=== PATIENT | female | born 1960 | race Hispanic/Latino ===

== ENCOUNTER 2017-03-30 11:43 | Emergency (ER) | payer MEDICARE, MEDICAID ==
[2017-03-30 12:05] VITALS: BMI 35.0
[2017-03-30 12:08] VITALS: BP 132/79; PULSE 98; RESP 18; TEMP 98.2; O2SAT 96
[2017-03-30] MEDS ORDERED: DiphenhydrAMINE 50 mg/ml Inj IM STA (12:31)
--- NOTE | 2017-03-30 12:35 | ED PDOC ---
Arrival/HPI - General Chief Complaint: Abnormal Skin Integrity Time Seen by Provider: 03/30/17 12:30 Historian: Patient - History of Present Illness Narrative History of Present Illness (Text): 03/30/17 12:32 56 y/o female, pmh including hyperlipidemia, nkda, post menopaursal, c/o itching rash from the scalp to the upper body x 10 days. Pt. stated that she use new hair dye about 10 days ago, been having itching from the scalp to the upper body, no fever or chills, no headache or night sweat, no chest pain or shortness of breath, no palpitation, no other medical or psychological complaints. Past Medical History - Provider Review Nursing Documentation Reviewed: Yes - Infectious Disease Hx of Infectious Diseases: None - Cardiac Hx Atrial Fibrillation: Yes Hx Hypertension: Yes Hx Pacemaker: Yes (PPM with Difib.10/30/13) Hx Peripheral Edema: No Other/Comment: IHSS. 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 while We Talking) - Renal Hx Renal Disorder: No - Endocrine/Metabolic Hx Endocrine Disorders: No - Hematological/Oncological Hx Blood Disorders: Yes Hx Blood Transfusions: Yes Hx Blood Transfusion Reaction: No - Integumentary Hx Dermatological Disorder: Yes Hx Psoriasis: Yes (All Over The Body with Small Rash.Skin Intact) - Musculoskeletal/Rheumatological Hx Musculoskeletal Disorders: No Hx Falls: No - Gastrointestinal Hx Gastrointestinal Disorders: No - Genitourinary/Gynecological Hx Genitourinary Disorders: No - Psychiatric Hx Psychophysiologic Disorder: No Hx Substance Use: No - Surgical History Hx Coronary Artery Bypass Graft: Yes (Cabg 10/19/2005) Hx Tonsillectomy: Yes (28 Yrs Ago) - Anesthesia Hx Anesthesia: Yes Hx Anesthesia Reactions: No Hx Malignant Hyperthermia: No - Suicidal Assessment Feels Threatened In Home Enviroment: No Family/Social History - Physician Review Nursing Documentation Reviewed: Yes Family/Social History: Unknown Family HX Smoking Status: Current Some Days Smoker Hx Alcohol Use: No Hx Substance Use: No Allergies/Home Meds Allergies/Adverse Reactions: Allergies No Known Allergies Allergy (Verified 11/08/14 21:56) Home Medications: Home Meds Medication Instructions Recorded Confirmed Pradaxa 150 mg PO BID 11/14/13 03/30/17 Verapamil 240 mg PO DAILY 11/14/13 03/30/17 ALPRAZolam [Xanax] 1 mg PO BID PRN 07/14/16 03/30/17 Simvastatin [Simvastatin] 1 tab PO HS 03/30/17 03/30/17 Review of Systems - Review of Systems Constitutional: absent: Fatigue, Fevers Eyes: absent: Vision Changes Respiratory: absent: SOB, Cough Cardiovascular: absent: Chest Pain Gastrointestinal: absent: Abdominal Pain, Diarrhea, Nausea, Vomiting Skin: Rash, Pruritis. absent: Skin Lesions, Laceration, Abscess, Ulcer, Cellulitis Neurological: absent: Headache, Dizziness, Focal Weakness, Gait Changes Physical Exam Vital Signs Reviewed: Yes Vital Signs Temp Pulse Resp BP Pulse Ox 03/30/17 12:07 98.2 F 98 H 18 132/79 96 Temperature: Afebrile Blood Pressure: Normal Pulse: Regular Respiratory Rate: Normal Appearance: Positive for: Well-Appearing, Non-Toxic, Comfortable Pain Distress: None Mental Status: Positive for: Alert and Oriented X 3 - Systems Exam Head: Present: Atraumatic, Normocephalic Pupils: Present: PERRL Extroacular Muscles: Present: EOMI Conjunctiva: Present: Normal Mouth: Present: Moist Mucous Membranes Neck: Present: Normal Range of Motion Respiratory/Chest: Present: Clear to Auscultation, Good Air Exchange. No: Respiratory Distress, Accessory Muscle Use Cardiovascular: Present: Regular Rate and Rhythm, Normal S1, S2. No: Murmurs Abdomen: Present: Normal Bowel Sounds. No: Tenderness, Distention, Peritoneal Signs Back: Present: Normal Inspection Upper Extremity: Present: Normal Inspection. No: Cyanosis, Edema Lower Extremity: Present: Normal Inspection. No: Edema Neurological: Present: GCS=15, Speech Normal Skin: Present: Warm, Dry, Rashes (visible hives noted on the bilateral upper extremities/chest/neck/face: scattered hives approx. [id number] noted with no bullseye or target signs, no cellulitis or streaking, no ulcers. ), Normal Color Psychiatric: Present: Alert, Oriented x 3, Normal Insight, Normal Concentration Medical Decision Making ED Course and Treatment: 03/30/17 12:35 -Benadryl/pepcid/prednisone -pt. is not driving home. -Discharge home with benadryl, pepcid, prednisone, keep the skin cool and dry, avoid any cosmetic products or hair products to the upper body, follow up with your own pmd and massage therapy instructor within 2 days, return to the ER for any new or worsening signs or symptoms. - PA / PLASTERER [employer] / Resident Statement MD/ has reviewed & agrees with the documentation as recorded. Disposition/Present on Arrival - Present on Arrival Any Indicators Present on Arrival: No History of DVT/PE: No History of Uncontrolled Diabetes: No Urinary Catheter: No History of Decub. Ulcer: No History Surgical Site Infection Following: None - Disposition Have Diagnosis and Disposition been Completed?: Yes Diagnosis: Dermatitis Disposition: HOME/ ROUTINE Disposition Time: 12:37 Patient Plan: Discharge Condition: GOOD Additional Instructions: -Discharge home with benadryl, pepcid, prednisone, keep the skin cool and dry, avoid any cosmetic products or hair products to the upper body, follow up with your own pmd and massage therapy instructor within 2 days, return to the ER for any new or worsening signs or symptoms. Prescriptions: DiphenhydrAMINE [Benadryl] 50 mg PO QID PRN #20 cap PRN Reason: Other Famotidine [Pepcid] 20 mg PO BID #14 tab predniSONE [Prednisone] 2 tab PO DAILY #8 tab Referrals: Alphonso Cruz MD [Staff Provider] - Follow up with primary Forms: [facility] (Arabic), WORK NOTE
== END 2017-03-30 13:18 | disposition home or self-care (01) ==
LOC: ED 11:43
DX: L30.9 Dermatitis, unspecified (principal)
CPT/HCPCS: 96372; 99283; J1200

== ENCOUNTER 2017-04-02 16:32 | Emergency (ER) | payer MEDICARE, MEDICAID ==
[2017-04-02 16:34] VITALS: BMI 34.9
[2017-04-02 16:36] VITALS: BP 146/81; PULSE 91; RESP 18; TEMP 98.2; O2SAT 96
[2017-04-02] MEDS ORDERED: Permethrin 5% Cream(60 gm) TOP STA (16:56)
--- NOTE | 2017-04-02 16:56 | ED PDOC ---
Arrival/HPI - General Chief Complaint: Abnormal Skin Integrity Time Seen by Provider: 04/02/17 16:44 Historian: Patient - History of Present Illness Narrative History of Present Illness (Text): 04/02/17 16:44 56 y/o female, pmh including hyperlipidemia, post menopausal, nkda, c/o itching rash on the groins/knees/neck region x 3 days. Pt. was seen by me for contact dermatitis after she used a different hair dye and washing it during the shower. Pt. stated that the hives are gone, started to have itching on the bilateral groin/knee/neck region, admits sweating alot, no fever or chills, no headache or night sweat, no weight loss, no yellow discoloration of the skin, no other medical or psychological complaints. Past Medical History - Provider Review Nursing Documentation Reviewed: Yes - Infectious Disease Hx of Infectious Diseases: None - Cardiac Hx Atrial Fibrillation: Yes Hx Hypertension: Yes Hx Pacemaker: Yes (PPM with Difib.10/30/13) Hx Peripheral Edema: No Other/Comment: IHSS. 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 while We Talking) - Renal Hx Renal Disorder: No - Endocrine/Metabolic Hx Endocrine Disorders: No - Hematological/Oncological Hx Blood Disorders: Yes Hx Blood Transfusions: Yes Hx Blood Transfusion Reaction: No - Integumentary Hx Dermatological Disorder: Yes Hx Psoriasis: Yes (All Over The Body with Small Rash.Skin Intact) - Musculoskeletal/Rheumatological Hx Musculoskeletal Disorders: No Hx Falls: No - Gastrointestinal Hx Gastrointestinal Disorders: No - Genitourinary/Gynecological Hx Genitourinary Disorders: No - Psychiatric Hx Psychophysiologic Disorder: No Hx Substance Use: No - Surgical History Hx Coronary Artery Bypass Graft: Yes (Cabg 10/19/2005) Hx Tonsillectomy: Yes (28 Yrs Ago) - Anesthesia Hx Anesthesia: Yes Hx Anesthesia Reactions: No Hx Malignant Hyperthermia: No - Suicidal Assessment Feels Threatened In Home Enviroment: No Family/Social History - Physician Review Nursing Documentation Reviewed: Yes Family/Social History: Unknown Family HX Smoking Status: Current Some Days Smoker Hx Alcohol Use: No Hx Substance Use: No Allergies/Home Meds Allergies/Adverse Reactions: Allergies No Known Allergies Allergy (Verified 11/08/14 21:56) Home Medications: Home Meds Medication Instructions Recorded Confirmed Pradaxa 150 mg PO BID 11/14/13 04/02/17 Verapamil 240 mg PO DAILY 11/14/13 04/02/17 ALPRAZolam [Xanax] 1 mg PO BID PRN 07/14/16 04/02/17 Simvastatin [Simvastatin] 1 tab PO HS 03/30/17 04/02/17 Review of Systems - Review of Systems Constitutional: absent: Fatigue, Fevers Eyes: absent: Vision Changes ENT: absent: Hearing Changes Respiratory: absent: SOB, Cough Cardiovascular: Other. absent: Chest Pain Gastrointestinal: absent: Abdominal Pain, Diarrhea, Nausea, Vomiting Skin: Rash, Pruritis, Skin Lesions. absent: Laceration, Abscess, Ulcer, Cellulitis Neurological: absent: Headache, Dizziness, Speech Changes, Facial Droop Physical Exam Vital Signs Reviewed: Yes Vital Signs Temp Pulse Resp BP Pulse Ox 04/02/17 16:36 98.2 F 91 H 18 146/81 96 Temperature: Afebrile Blood Pressure: Normal Pulse: Regular Respiratory Rate: Normal Appearance: Positive for: Well-Appearing, Non-Toxic, Comfortable Pain Distress: None Mental Status: Positive for: Alert and Oriented X 3 - Systems Exam Head: Present: Atraumatic, Normocephalic Pupils: Present: PERRL Extroacular Muscles: Present: EOMI Conjunctiva: Present: Normal Mouth: Present: Moist Mucous Membranes Neck: Present: Normal Range of Motion Respiratory/Chest: Present: Clear to Auscultation, Good Air Exchange. No: Respiratory Distress, Accessory Muscle Use Cardiovascular: Present: Regular Rate and Rhythm, Normal S1, S2. No: Murmurs Abdomen: Present: Normal Bowel Sounds. No: Tenderness, Distention, Peritoneal Signs Back: Present: Normal Inspection Upper Extremity: Present: Normal Inspection. No: Cyanosis, Edema Lower Extremity: Present: Normal Inspection. No: Edema Neurological: Present: GCS=15, Speech Normal Skin: Present: Warm, Dry, Rashes (visible papule rash noted on the neck/ bilateral lower breast/groin and posterior knees region and the rt. forearm skin fold region, no cellulitis or streaking, no bullseye or target signs. ), Normal Color Psychiatric: Present: Alert, Oriented x 3, Normal Insight, Normal Concentration Medical Decision Making ED Course and Treatment: 04/02/17 17:00 -Based on the skin pattern, clinically concerning for the scabies, permethrin cream ordered. -Based on the patient's skin region and constantly sweating, clinically concerning about the fungal infection. -I discussed with the patient which she requested and agreed to be treated for scabies and tinea rash. -Discharge home with permethrin cream, lotrisone cream, keep the skin cool and dry, follow up with your own pmd and plush brusher within 2 days, return to the ER for any new or worsening signs or symptoms. - PA / DEMAND GENERATOR MANAGER / Resident Statement / has reviewed & agrees with the documentation as recorded. Disposition/Present on Arrival - Present on Arrival Any Indicators Present on Arrival: No History of DVT/PE: No History of Uncontrolled Diabetes: No Urinary Catheter: No History of Decub. Ulcer: No History Surgical Site Infection Following: None - Disposition Have Diagnosis and Disposition been Completed?: Yes Diagnosis: Dermatitis Disposition: HOME/ ROUTINE Disposition Time: 17:02 Patient Plan: Discharge Condition: GOOD Additional Instructions: -Discharge home with permethrin cream, lotrisone cream, keep the skin cool and dry, follow up with your own pmd and plush brusher within 2 days, return to the ER for any new or worsening signs or symptoms. Prescriptions: Clotrimazole/Betamethasone [Lotrisone] 1 appl EXT BID #60 g Referrals: Alphonso Cruz MD [Staff Provider] - Follow up with primary Forms: [facility] (Vietnamese), WORK NOTE
== END 2017-04-02 17:36 | disposition home or self-care (01) ==
LOC: ED 16:32
DX: L30.9 Dermatitis, unspecified (principal); I48.91 Unspecified atrial fibrillation; E78.5 Hyperlipidemia, unspecified